=== PATIENT | male | born 1970 | race Caucasian/White ===

== ENCOUNTER → 2016-06-29 | Outpatient (CLI) | payer OTHER ==
[~2016-06-29] VITALS: Ht 182.9 cm; Wt 138.3 kg
== END | disposition home or self-care (01) ==
LOC: HDHVI->DVH 11:31
PROVIDERS: ATTEND Internal Medicine Cardiovascular Disease
DX: Z01.810 Encounter for preprocedural cardiovascular examination (principal)
CPT/HCPCS: 93306

== ENCOUNTER → 2022-06-26 | Outpatient (CLI) | payer OTHER ==
[2022-06-26 07:50] LABS: Basophils # (auto) 0.1 10 ^3/uL (0-0.2); Basophils % (auto) 0.9 % (0.0-2.0); Eosinophils # (auto) 0.2 10 ^3/uL (0-0.8); Eosinophils % (auto) 3.2 % (0.0-7.0); Hematocrit 45.6 % (41.0-53.0); Hemoglobin 15.7 g/dL (13.5-17.5); Lymphocytes # (auto) 1.2 10 ^3/uL (0.4-5.4); Lymphocytes % (auto) 20.8 % (10.0-50.0); Mean Corpuscular Hemoglobin 30.7 pg (28.0-32.0); Mean Corpuscular Hgb Conc. 34.5 g/dL (32.0-36.0); Mean Corpuscular Volume 89.1 fL (80.0-100.0); Monocytes # (auto) 0.6 10 ^3/uL (0-1.3); Monocytes % (auto) 9.2 % (0.0-12.0); Neutrophils % (auto) 65.9 % (37.0-80.0); Red Blood Cells 5.12 10^6/uL (4.5-5.90); Red Cell Distribution Width 13.6 % (11.8-14.3)
[2022-06-26 07:53] LABS: Urine Bacteria NONE SEEN /hpf (None Seen); Urine Blood Negative /uL (Negative); Urine Mucus FEW (None Seen); Urine Specific Gravity 1.032 (1.001-1.035); Urine WBC 2 /hpf (0 - 3)
[2022-06-26 08:32] LABS: Magnesium 2.2 mg/dL (1.6-2.6); Potassium 3.7 mmol/L (3.5-5.1)
[2022-06-26 08:40] LABS: Albumin 4.1 g/dL (3.4-5.0); BUN/Creatinine Ratio 16.3 (10.0-20.0); Bilirubin, Total 0.7 mg/dL (0.2-1.0); Calcium 9.7 mg/dL (8.5-10.1); Total Protein 8.4 g/dL (6.4-8.2); Uric Acid 6.9 mg/dL (3.5-7.2)
[2022-06-26 14:34] LABS: Folate (Folic Acid) > 24.00 ng/mL (5.38-24)
== END | disposition home or self-care (01) ==
LOC: LAB 07:12
PROVIDERS: ATTEND Internal Medicine
DX: E61.2 Magnesium deficiency (principal); R68.89 Other general symptoms and signs; E55.9 Vitamin D deficiency, unspecified; R73.09 Other abnormal glucose; R94.6 Abnormal results of thyroid function studies; E79.0 Hyperuricemia without signs of inflammatory arthritis and tophaceous disease; R82.79 Other abnormal findings on microbiological examination of urine; D51.9 Vitamin B12 deficiency anemia, unspecified; R82.90 Unspecified abnormal findings in urine
CPT/HCPCS: 36415; 80053; 80061; 81001; 82306; 82607; 82746; 83036; 83735; 84402; 84403; 84443; 84550; 85025

== ENCOUNTER → 2023-05-18 | Outpatient (CLI) | payer OTHER ==
[2023-05-18 10:23] LABS: Prostate Specific Antigen 1.51 ng/mL (0.0-4.0)
[2023-05-18 10:27] LABS: T3 Total 1.12 ng/mL (0.60-1.81)
[2023-05-18 10:28] LABS: Free T3 3.56 pg/mL (2.3-4.2); Free T4 (Free Thyroxine) 1.02 ng/dL (0.89-1.76)
== END | disposition home or self-care (01) ==
LOC: LAB 08:29
PROVIDERS: ATTEND Internal Medicine
DX: R78.89 Finding of other specified substances, not normally found in blood (principal); E78.9 Disorder of lipoprotein metabolism, unspecified; R68.89 Other general symptoms and signs; R73.09 Other abnormal glucose; E61.2 Magnesium deficiency; E79.0 Hyperuricemia without signs of inflammatory arthritis and tophaceous disease; E85.9 Amyloidosis, unspecified; R82.90 Unspecified abnormal findings in urine; D51.9 Vitamin B12 deficiency anemia, unspecified
CPT/HCPCS: 36415; 82306; 84153; 84403; 84439; 84480; 84481; 87086

== ENCOUNTER → 2023-09-21 | Outpatient (CLI) | payer OTHER ==
[2023-09-21 06:26] LABS: Urine Bacteria FEW /hpf (None Seen); Urine Blood Negative /uL (Negative); Urine Budding Yeast OCCASIONAL /hpf (None Seen); Urine Clarity Clear (Clear); Urine Color Yellow (Yellow); Urine Protein, UAD Negative (Negative); Urine Specific Gravity 1.026 (1.001-1.035); Urine Urobilinogen 2 mg/dL (Negative); Urine WBC 1 /hpf (0 - 3); Urine pH 6.5 (5.0-9.0)
[2023-09-21 06:33] LABS: Basophils # (auto) 0.1 10 ^3/uL (0-0.2); Basophils % (auto) 0.9 % (0.0-2.0); Eosinophils # (auto) 0.2 10 ^3/uL (0-0.8); Eosinophils % (auto) 3.2 % (0.0-7.0); Hematocrit 46.6 % (41.0-53.0); Hemoglobin 16.2 g/dL (13.5-17.5); Lymphocytes % (auto) 16.9 % (10.0-50.0); Mean Corpuscular Hemoglobin 32.2 pg (28.0-32.0); Mean Corpuscular Hgb Conc. 34.7 g/dL (32.0-36.0); Mean Corpuscular Volume 92.8 fL (80.0-100.0); Monocytes # (auto) 0.6 10 ^3/uL (0-1.3); Monocytes % (auto) 9.3 % (0.0-12.0); Neutrophils # (auto) 4.3 10 ^3/uL (1.6-8.6); Neutrophils % (auto) 69.7 % (37.0-80.0); Nucleated Red Blood Cells % 0.1 %; Red Blood Cells 5.02 10^6/uL (4.5-5.90); Red Cell Distribution Width 13.4 % (11.8-14.3); White Blood Cell 6.1 10^3/uL (4.4-10.8)
[2023-09-21 07:26] LABS: Alanine Aminotransferase 24 U/L (7-40); Albumin 4.3 g/dL (3.2-4.8); Alkaline Phosphatase 56 U/L (46-116); Anion Gap 5 (5-15); Aspartate Aminotransferase 14 U/L (13-40); BUN/Creatinine Ratio 11.8 (10.0-20.0); Bilirubin, Total 1.1 mg/dL (0.2-1.0); Blood Urea Nitrogen 13 mg/dL (9-23); Calcium 9.6 mg/dL (8.7-10.4); Carbon Dioxide 28 mmol/L (20-30); Chloride 107 mmol/L (98-107); Cholesterol 167 mg/dL (< 200); Glucose 85 mg/dL (74-106); HDL Cholesterol 48 mg/dL (40-59); LDL Cholesterol 110 mg/dL (< 100); Potassium 4.2 mmol/L (3.5-5.1); Sodium 140 mmol/L (136-145); Total Protein 6.8 g/dL (5.7-8.2); Triglycerides 100 mg/dL (< 150)
[2023-09-21 07:42] LABS: Folate (Folic Acid) > 48.00 ng/mL (>5.38)
== END | disposition home or self-care (01) ==
LOC: LAB 05:58
PROVIDERS: ATTEND Internal Medicine
DX: R73.09 Other abnormal glucose (principal); E61.2 Magnesium deficiency; R78.89 Finding of other specified substances, not normally found in blood; R68.89 Other general symptoms and signs; R82.90 Unspecified abnormal findings in urine; D51.9 Vitamin B12 deficiency anemia, unspecified; E85.9 Amyloidosis, unspecified; E79.0 Hyperuricemia without signs of inflammatory arthritis and tophaceous disease
CPT/HCPCS: 36415; 80053; 80061; 81001; 82306; 82607; 82746; 83036; 83735; 84403; 84443; 85025; 87086

== ENCOUNTER → 2024-02-06 | Outpatient (CLI) | payer OTHER ==
[2024-02-06 07:30] LABS: Basophils # (auto) 0 10 ^3/uL (0-0.2); Basophils % (auto) 0.7 % (0.0-2.0); Eosinophils # (auto) 0.2 10 ^3/uL (0-0.8); Eosinophils % (auto) 3.6 % (0.0-7.0); Hematocrit 46.1 % (41.0-53.0); Hemoglobin 15.7 g/dL (13.5-17.5); Lymphocytes # (auto) 1.1 10 ^3/uL (0.4-5.4); Lymphocytes % (auto) 17.4 % (10.0-50.0); Mean Corpuscular Hemoglobin 31.1 pg (28.0-32.0); Mean Corpuscular Volume 91.6 fL (80.0-100.0); Monocytes # (auto) 0.6 10 ^3/uL (0-1.3); Monocytes % (auto) 9.2 % (0.0-12.0); Neutrophils # (auto) 4.3 10 ^3/uL (1.6-8.6); Neutrophils % (auto) 69.1 % (37.0-80.0); Platelet Count (auto) 155 10^3/uL (140-450); Red Blood Cells 5.04 10^6/uL (4.5-5.90); Red Cell Distribution Width 14.5 % (11.8-14.3); White Blood Cell 6.2 10^3/uL (4.4-10.8)
[2024-02-06 08:16] LABS: Alanine Aminotransferase 22 U/L (7-40); Albumin 4.3 g/dL (3.2-4.8); Alkaline Phosphatase 64 U/L (46-116); Anion Gap 6 (5-15); BUN/Creatinine Ratio 8.5 (10.0-20.0); Blood Urea Nitrogen 15 mg/dL (9-23); Calcium 9.8 mg/dL (8.7-10.4); Carbon Dioxide 28 mmol/L (20-31); Cholesterol 179 mg/dL (< 200); Glucose 88 mg/dL (74-106); HDL Cholesterol 47 mg/dL (40-59); Potassium 4.3 mmol/L (3.5-5.1); Sodium 141 mmol/L (136-145); Triglycerides 128 mg/dL (< 150)
[2024-02-06 08:17] LABS: Bilirubin, Total 0.8 mg/dL (0.2-1.0); Total Protein 7.2 g/dL (5.7-8.2)
[2024-02-06 08:23] LABS: Aspartate Aminotransferase 12 U/L (13-40); Chloride 107 mmol/L (98-107); LDL Cholesterol 109 mg/dL (< 100)
[2024-02-06 08:57] LABS: Uric Acid 6.7 mg/dL (3.7-9.2)
[2024-02-06 11:51] LABS: % Iron Saturation 23.7 % (20-55)
[2024-02-07 12:06] LABS: Testosterone 1078 ng/dL (264-916)
== END | disposition home or self-care (01) ==
LOC: LAB 07:12
PROVIDERS: ATTEND Internal Medicine
DX: Z00.00 Encounter for general adult medical examination without abnormal findings (principal)
CPT/HCPCS: 36415; 80053; 80061; 83036; 83540; 83550; 84402; 84403; 84550; 85025

== ENCOUNTER → 2024-07-02 | Outpatient (CLI) | payer OTHER ==
[2024-07-02 09:47] LABS: Urine Bacteria None Seen /hpf (None Seen)
[2024-07-02 09:58] LABS: Urine Blood Negative /uL (Negative); Urine Clarity Clear (Clear); Urine Color Yellow (Yellow); Urine Protein, UAD Negative (Negative); Urine Specific Gravity 1.021 (1.001-1.035); Urine Squamous Epithelial Cell None Seen /hpf (<5); Urine Urobilinogen Normal (Negative); Urine WBC 1 /HPF (0-3); Urine pH 5.5 (5.0-9.0)
[2024-07-02 10:09] LABS: Chloride 107 mmol/L (98-107); Potassium 4.1 mmol/L (3.5-5.1); Sodium 141 mmol/L (136-145)
[2024-07-02 10:10] LABS: Anion Gap 6 (5-15); Carbon Dioxide 28 mmol/L (20-31)
[2024-07-02 10:11] LABS: Calcium 10.1 mg/dL (8.7-10.4)
[2024-07-02 10:15] LABS: BUN/Creatinine Ratio 11.6 (10.0-20.0); Blood Urea Nitrogen 19 mg/dL (9-23)
[2024-07-02 10:18] LABS: Glucose 55 mg/dL (74-106)
== END | disposition home or self-care (01) ==
LOC: LAB 09:36
DX: Z52.4 Kidney donor (principal)
CPT/HCPCS: 36415; 80048; 81001; 87086

== ENCOUNTER 2024-08-04 06:10 | Outpatient (CLI) | payer OTHER ==
[2024-08-04 06:44] LABS: Urine Bacteria None Seen /hpf (None Seen)
[2024-08-04 06:53] LABS: Basophils # (auto) 0 10 ^3/uL (0-0.2); Basophils % (auto) 0.6 % (0.0-2.0); Eosinophils # (auto) 0.2 10 ^3/uL (0-0.8); Eosinophils % (auto) 3.6 % (0.0-7.0); Hematocrit 46.9 % (41.0-53.0); Hemoglobin 16.2 g/dL (13.5-17.5); Lymphocytes # (auto) 0.8 10 ^3/uL (0.4-5.4); Lymphocytes % (auto) 12.4 % (10.0-50.0); Mean Corpuscular Hemoglobin 32.1 pg (28.0-32.0); Mean Corpuscular Hgb Conc. 34.6 g/dL (32.0-36.0); Mean Corpuscular Volume 92.7 fL (80.0-100.0); Monocytes # (auto) 0.6 10 ^3/uL (0-1.3); Monocytes % (auto) 10.1 % (0.0-12.0); Neutrophils # (auto) 4.7 10 ^3/uL (1.6-8.6); Neutrophils % (auto) 73.3 % (37.0-80.0); Platelet Count (auto) 161 10^3/uL (140-450); Red Blood Cells 5.06 10^6/uL (4.5-5.90); Red Cell Distribution Width 13.5 % (11.8-14.3); White Blood Cell 6.4 10^3/uL (4.4-10.8)
[2024-08-04 06:54] LABS: Urine Blood Negative /uL (Negative); Urine Clarity Clear (Clear); Urine Color Yellow (Yellow); Urine Protein, UAD TRACE (Negative); Urine Specific Gravity 1.031 (1.001-1.035); Urine Squamous Epithelial Cell None Seen /hpf (<5); Urine Urobilinogen 3 mg/dL (Negative); Urine WBC 1 /HPF (0-3)
[2024-08-04 07:26] LABS: Alanine Aminotransferase 25 U/L (7-40); Alkaline Phosphatase 56 U/L (46-116); Anion Gap 6 (5-15); BUN/Creatinine Ratio 10.7 (10.0-20.0); Blood Urea Nitrogen 18 mg/dL (9-23); Calcium 9.8 mg/dL (8.7-10.4); Carbon Dioxide 26 mmol/L (20-31); Glucose 84 mg/dL (74-106); LDL Cholesterol 70 mg/dL (< 100); Potassium 4.4 mmol/L (3.5-5.1); Sodium 142 mmol/L (136-145); Total Protein 7.6 g/dL (5.7-8.2); Triglycerides 123 mg/dL (< 150)
[2024-08-04 07:27] LABS: Albumin 4.7 g/dL (3.2-4.8); Aspartate Aminotransferase 17 U/L (13-40); Cholesterol 124 mg/dL (< 200)
[2024-08-04 07:28] LABS: Bilirubin, Total 1.2 mg/dL (0.2-1.0); Chloride 110 mmol/L (98-107); HDL Cholesterol 35 mg/dL (40-59)
== END 2024-08-04 17:00 | disposition home or self-care (01) ==
LOC: LAB 06:10
PROVIDERS: ATTEND Internal Medicine
DX: E29.1 Testicular hypofunction (principal)
CPT/HCPCS: 36415; 80053; 80061; 81001; 83036; 84153; 84403; 85025

== ENCOUNTER 2024-11-10 06:11 | Outpatient (CLI) | payer OTHER ==
[2024-11-10 06:56] LABS: Hematocrit 46.2 % (41.0-53.0); Hemoglobin 16.1 g/dL (13.5-17.5); Mean Corpuscular Hemoglobin 31.6 pg (28.0-32.0); Mean Corpuscular Volume 90.7 fL (80.0-100.0); Nucleated Red Blood Cells % 0.1 %
[2024-11-10 07:27] LABS: Urine Protein, UAD Negative (Negative)
[2024-11-10 07:32] LABS: Alanine Aminotransferase 25 U/L (7-40); Albumin 4.2 g/dL (3.2-4.8); Alkaline Phosphatase 55 U/L (46-116); Anion Gap 10 (5-15); BUN/Creatinine Ratio 10.2 (10.0-20.0); Blood Urea Nitrogen 17 mg/dL (9-23); Calcium 9.2 mg/dL (8.7-10.4); Carbon Dioxide 23 mmol/L (20-31); Chloride 107 mmol/L (98-107); Cholesterol 167 mg/dL (< 200); Glucose 87 mg/dL (74-106); HDL Cholesterol 46 mg/dL (40-59); Magnesium 1.9 mg/dL (1.6-2.6); Potassium 4.3 mmol/L (3.5-5.1); Sodium 140 mmol/L (136-145); Total Protein 7.4 g/dL (5.7-8.2); Triglycerides 117 mg/dL (< 150)
[2024-11-10 07:33] LABS: Bilirubin, Total 0.8 mg/dL (0.2-1.0)
[2024-11-10 08:16] LABS: Uric Acid 6.4 mg/dL (3.7-9.2)
[2024-11-11 08:07] LABS: Prostate Specific Antigen 2.2 ng/mL (0.0-4.0)
== END 2024-11-10 17:00 | disposition home or self-care (01) ==
LOC: LAB 06:11
PROVIDERS: ATTEND Internal Medicine
DX: I12.9 Hypertensive chronic kidney disease with stage 1 through stage 4 chronic kidney disease, or unspecified chronic kidney disease (principal); N18.31 Chronic kidney disease, stage 3a; E29.1 Testicular hypofunction; E66.9 Obesity, unspecified
CPT/HCPCS: 36415; 80053; 80061; 81003; 82306; 82607; 83036; 83735; 84154; 84402; 84403; 84443; 84550; 85025; 87086

== ENCOUNTER → 2024-12-05 | Outpatient (CLI) | payer OTHER | END | disposition home or self-care (01) | LOC: LAB 13:44 | PROVIDERS: ATTEND Family Medicine | DX: Z01.812 Encounter for preprocedural laboratory examination (principal); D48.5 Neoplasm of uncertain behavior of skin ==